=== PATIENT | male | born 1955 | race Two or more races ===

== ENCOUNTER 2022-08-12 14:36 | Emergency (ER) | payer MEDICARE, MEDICAID ==
[~2022-08-12] VITALS: Ht 180.3 cm; Wt 110.0 kg
[2022-08-12 15:37] LABS: Basophils # (auto) 0.2 10 ^3/uL (0-0.2); Eosinophils # (auto) 0.2 10 ^3/uL (0-0.8); Eosinophils % (auto) 1.8 % (0.0-7.0); Hematocrit 43.7 % (41.0-53.0); Hemoglobin 14.2 g/dL (13.5-17.5); Lymphocytes # (auto) 0.9 10 ^3/uL (0.4-5.4); Lymphocytes % (auto) 9.6 % (10.0-50.0); Mean Corpuscular Hemoglobin 27.9 pg (28.0-32.0); Mean Corpuscular Hgb Conc. 32.4 g/dL (32.0-36.0); Mean Corpuscular Volume 85.9 fL (80.0-100.0); Monocytes # (auto) 0.6 10 ^3/uL (0-1.3); Monocytes % (auto) 6.9 % (0.0-12.0); Neutrophils # (auto) 7.2 10 ^3/uL (1.6-8.6); Neutrophils % (auto) 79.7 % (37.0-80.0); Red Blood Cells 5.09 10^6/uL (4.5-5.90); Red Cell Distribution Width 14.4 % (11.8-14.3); White Blood Cell 9.1 10^3/uL (4.4-10.8)
[2022-08-12 15:50] LABS: Alanine Aminotransferase 25 U/L (16-61); Albumin 2.8 g/dL (3.4-5.0); Anion Gap 11 (5-15); Aspartate Aminotransferase 24 U/L (15-37); Blood Urea Nitrogen 19 mg/dL (7-18); Calcium 8.7 mg/dL (8.5-10.1); Carbon Dioxide 21 mmol/L (21-32); Chloride 107 mmol/L (98-107); GFR African American 132 mL/min; GFR Non-African American 109 mL/min; Glucose 131 mg/dL (74-106); Potassium 4.1 mmol/L (3.5-5.1); Sodium 139 mmol/L (136-145)
[2022-08-12 15:54] LABS: Alkaline Phosphatase 74 U/L (45-117); Bilirubin, Total 0.3 mg/dL (0.2-1.0); Total Protein 7.1 g/dL (6.4-8.2)
[2022-08-12] MEDS ORDERED: KETOROLAC TROMETH 30 MG/ML 1ML VIAL IV ONE (18:00)
[2022-08-12] MEDS ORDERED: FUROSEMIDE 40 MG/4 ML VIAL IV ONE (18:00)
[2022-08-12 21:20] VITALS: BP 144/76
[2022-08-12] MEDS ORDERED: MELO-335 PO (22:57)
[2022-08-12] MEDS ORDERED: FURO1TAB31 PO (22:57)
[2022-08-15 09:12] LABS: Hepatitis B Surface Antibody Negative (Negative)
[2022-08-15 09:48] LABS: Hepatitis A Total Antibody Negative (Negative)
[2022-08-15 12:36] LABS: Hepatitis C Antibody Negative (Negative)
== END 2022-08-12 23:24 | disposition home or self-care (01) ==
LOC: EDBD 14:36 → ER 14:36
DX: R60.0 Localized edema (principal); I10 Essential (primary) hypertension; R06.02 Shortness of breath
CPT/HCPCS: 36415; 80053; 83880; 85025; 86704; 86706; 86708; 86803; 87340; 93005; 93970; 96374; 96375; 99285; J1885; J1940

== ENCOUNTER 2023-04-17 18:26 | Inpatient (IN) | payer MEDICAID, MEDICARE ==
[~2023-04-17] VITALS: Ht 182.9 cm; Wt 110.0 kg
[~2023-04-17 18:26] MED LIST: FURO1TAB31 PO; MELO-335 PO
[2023-04-17 20:35] LABS: Basophils # (auto) 0.1 10 ^3/uL (0-0.2); Basophils % (auto) 0.7 % (0.0-2.0); Eosinophils # (auto) 0.4 10 ^3/uL (0-0.8); Eosinophils % (auto) 5.8 % (0.0-7.0); Hematocrit 43.1 % (41.0-53.0); Hemoglobin 14.1 g/dL (13.5-17.5); Lymphocytes # (auto) 1.5 10 ^3/uL (0.4-5.4); Lymphocytes % (auto) 20.1 % (10.0-50.0); Mean Corpuscular Hemoglobin 27.8 pg (28.0-32.0); Mean Corpuscular Hgb Conc. 32.8 g/dL (32.0-36.0); Mean Corpuscular Volume 84.7 fL (80.0-100.0); Monocytes # (auto) 0.6 10 ^3/uL (0-1.3); Monocytes % (auto) 8.2 % (0.0-12.0); Neutrophils % (auto) 65.2 % (37.0-80.0); Nucleated Red Blood Cells % 0.1 %; Red Blood Cells 5.08 10^6/uL (4.5-5.90); Red Cell Distribution Width 14.2 % (11.8-14.3); White Blood Cell 7.7 10^3/uL (4.4-10.8)
[2023-04-17 20:49] LABS: Alanine Aminotransferase 32 U/L (7-40); Albumin 4.3 g/dL (3.2-4.8); Alkaline Phosphatase 77 U/L (46-116); Anion Gap 7 (5-15); Aspartate Aminotransferase 24 U/L (13-40); Bilirubin, Total 0.4 mg/dL (0.2-1.0); Blood Urea Nitrogen 16 mg/dL (9-23); Calcium 9.4 mg/dL (8.7-10.4); Carbon Dioxide 25 mmol/L (20-30); Chloride 104 mmol/L (98-107); Glucose 104 mg/dL (74-106); Magnesium 1.8 mg/dL (1.6-2.6); Sodium 136 mmol/L (136-145); Total Protein 7.3 g/dL (5.7-8.2)
[2023-04-17 20:54] LABS: INR 1.04 (0.9-1.15); Partial Thromboplastin Time 31.3 SEC (24.5-34.5); Prothrombin Time 10.9 sec (9.3-11.8)
[2023-04-17] MEDS: FUROSEMIDE 100 MG/10ML VIAL IV ONE (23:21)
[2023-04-17] MEDS: VANCOMYCIN 1GM/200ML 200 ML IV ONE (23:24)
[2023-04-17] MEDS: IOHEXOL 350 MG/ML 100ML IJ ONE (23:27)
[2023-04-18] MEDS ORDERED: ACETAMINOPHEN 325 MG TAB PO PRN (00:15)
[2023-04-18 01:30] VITALS: PULSE 78; RESP 18; O2SAT 97
[2023-04-18] MEDS: ONDANSETRON HCL 4 MG/2 ML VIAL IV PRN (01:57)
[2023-04-18] MEDS: ONDANSETRON ODT 4 MG TAB PO ONE (01:58)
[2023-04-18] MEDS: HYDROmorphone HCL 2 MG/ML VL/or syr IV ONE (01:58)
[2023-04-18 02:36] LABS: Urine Bacteria NONE SEEN /hpf (None Seen); Urine Blood 1+ /uL (Negative); Urine Clarity Clear (Clear); Urine Color Colorless (Yellow); Urine Protein, UAD Negative (Negative); Urine Specific Gravity 1.012 (1.001-1.035); Urine Urobilinogen Normal (Negative); Urine WBC <1 /hpf (0 - 3)
[2023-04-18] MEDS: CLINDAMYCIN 600MG IV 50 ML IV SCH (05:57)
[2023-04-18] MEDS: cefTRIAXone 1GM/50ML D5W 50 ML IV SCH (09:26)
[2023-04-18] MEDS: ENOXAPARIN SOD 40 MG/0.4 ML SYRINGE SC SCH (10:32)
[2023-04-18] MEDS: FUROSEMIDE 40 MG TAB PO SCH (10:37)
[2023-04-18] MEDS: HYDROcodone-ACET 5/325MG TAB PO PRN (10:41)
[2023-04-18 16:30] LABS: Erythrocyte Sedimentation Rate 13 mm/hr (0-20)
[2023-04-18] MEDS: FUROSEMIDE 40 MG/4 ML VIAL IV SCH (18:16)
[2023-04-18 22:24] VITALS: PULSE 71; RESP 14; O2SAT 93
[2023-04-18 23:15] VITALS: BP 123/77; PULSE 106; RESP 20; TEMP 98.5; O2SAT 95
[2023-04-19] VITALS (7 sets, daily range): BP systolic 123–139; BP diastolic 72–91; PULSE 67–106; RESP 18–20; TEMP 97.8–98.9; O2SAT 95–96
[2023-04-19 05:48] LABS: Basophils # (auto) 0.1 10 ^3/uL (0-0.2); Basophils % (auto) 0.9 % (0.0-2.0); Eosinophils # (auto) 0.3 10 ^3/uL (0-0.8); Eosinophils % (auto) 5.5 % (0.0-7.0); Hematocrit 39.8 % (41.0-53.0); Lymphocytes # (auto) 1.6 10 ^3/uL (0.4-5.4); Lymphocytes % (auto) 27.2 % (10.0-50.0); Mean Corpuscular Hemoglobin 27.6 pg (28.0-32.0); Mean Corpuscular Hgb Conc. 32.7 g/dL (32.0-36.0); Mean Corpuscular Volume 84.2 fL (80.0-100.0); Monocytes # (auto) 0.7 10 ^3/uL (0-1.3); Monocytes % (auto) 11.8 % (0.0-12.0); Neutrophils # (auto) 3.3 10 ^3/uL (1.6-8.6); Neutrophils % (auto) 54.6 % (37.0-80.0); Nucleated Red Blood Cells % 0.1 %; Red Blood Cells 4.73 10^6/uL (4.5-5.90); Red Cell Distribution Width 14.1 % (11.8-14.3)
[2023-04-19 05:57] LABS: Anion Gap 8 (5-15); Carbon Dioxide 27 mmol/L (20-30); Chloride 106 mmol/L (98-107); Potassium 3.7 mmol/L (3.5-5.1); Sodium 141 mmol/L (136-145)
[2023-04-19 05:58] LABS: Calcium 8.8 mg/dL (8.7-10.4)
[2023-04-19 06:03] LABS: BUN/Creatinine Ratio 17.6 (10.0-20.0); Blood Urea Nitrogen 19 mg/dL (9-23); Glucose 84 mg/dL (74-106)
[2023-04-20 05:00] VITALS: BP 131/88; PULSE 105; RESP 18; TEMP 97.7; O2SAT 92
[2023-04-20 05:45] LABS: Basophils # (auto) 0 10 ^3/uL (0-0.2); Basophils % (auto) 0.8 % (0.0-2.0); Eosinophils # (auto) 0.3 10 ^3/uL (0-0.8); Eosinophils % (auto) 4.5 % (0.0-7.0); Hematocrit 42.6 % (41.0-53.0); Hemoglobin 13.9 g/dL (13.5-17.5); Lymphocytes # (auto) 1.4 10 ^3/uL (0.4-5.4); Lymphocytes % (auto) 22.2 % (10.0-50.0); Mean Corpuscular Hemoglobin 27.8 pg (28.0-32.0); Mean Corpuscular Hgb Conc. 32.7 g/dL (32.0-36.0); Mean Corpuscular Volume 85.3 fL (80.0-100.0); Monocytes # (auto) 0.7 10 ^3/uL (0-1.3); Monocytes % (auto) 12.3 % (0.0-12.0); Neutrophils # (auto) 3.7 10 ^3/uL (1.6-8.6); Neutrophils % (auto) 60.2 % (37.0-80.0); Red Cell Distribution Width 14.1 % (11.8-14.3); White Blood Cell 6.1 10^3/uL (4.4-10.8)
[2023-04-20 05:59] LABS: Chloride 104 mmol/L (98-107); Potassium 3.8 mmol/L (3.5-5.1); Sodium 140 mmol/L (136-145)
[2023-04-20 06:00] LABS: Anion Gap 7 (5-15); Calcium 9.5 mg/dL (8.7-10.4); Carbon Dioxide 29 mmol/L (20-30)
[2023-04-20 06:05] LABS: BUN/Creatinine Ratio 15.1 (10.0-20.0); Blood Urea Nitrogen 14 mg/dL (9-23); Glucose 90 mg/dL (74-106); Magnesium 2.1 mg/dL (1.6-2.6)
[2023-04-20 08:42] VITALS: BP 123/74; PULSE 64; RESP 20; TEMP 98; O2SAT 99
[2023-04-20 08:48] LABS: Hepatitis B Surface Antigen Negative (Negative)
[2023-04-20 09:09] LABS: Hepatitis C Antibody Negative (Negative)
[2023-04-20 12:45] VITALS: BP 144/90; PULSE 98; RESP 20; TEMP 98; O2SAT 98
[2023-04-20] MEDS: METOPROLOL SUCCINATE XL 50 MG TAB PO SCH (15:35)
[2023-04-20 17:10] VITALS: BP 138/77; PULSE 97; RESP 20; TEMP 98.4; O2SAT 93
[2023-04-20 21:00] VITALS: BP 149/85; PULSE 102; RESP 18; TEMP 98.6; O2SAT 97
[2023-04-21 01:00] VITALS: BP 126/81; PULSE 97; RESP 18; TEMP 98.3; O2SAT 100
[2023-04-21 05:00] VITALS: BP 137/89; PULSE 91; RESP 14; TEMP 98.2; O2SAT 92
[2023-04-21 09:00] VITALS: BP 117/82; PULSE 67; RESP 21; TEMP 97.5; O2SAT 98
[2023-04-21] MEDS: FUROSEMIDE 40 MG/4 ML VIAL IV SCH (09:12)
[2023-04-21] MEDS ORDERED: FURO1TAB33 PO (11:29)
[2023-04-21] MEDS ORDERED: CLIN300C70 PO (11:29)
[2023-04-21] MEDS ORDERED: METO25TA36 PO (11:29)
[2023-04-21 13:00] VITALS: BP 134/81; PULSE 64; RESP 17; TEMP 98.3; O2SAT 95
[2023-04-21 16:55] VITALS: BP 140/85; PULSE 91; RESP 20; TEMP 98.3; O2SAT 99
[2023-04-21 21:00] VITALS: BP 145/80; PULSE 97; RESP 19; TEMP 98.4; O2SAT 95
[2023-04-22] VITALS (8 sets, daily range): BP systolic 113–140; BP diastolic 49–79; PULSE 85–99; RESP 16–19; TEMP 96.7–98.6; O2SAT 93–98
[2023-04-22 20:19] LABS: Basophils # (auto) 0 10 ^3/uL (0-0.2); Basophils % (auto) 0.6 % (0.0-2.0); Eosinophils # (auto) 0.3 10 ^3/uL (0-0.8); Eosinophils % (auto) 3.9 % (0.0-7.0); Hematocrit 44.3 % (41.0-53.0); Hemoglobin 14.5 g/dL (13.5-17.5); Lymphocytes # (auto) 1.5 10 ^3/uL (0.4-5.4); Mean Corpuscular Hemoglobin 27.7 pg (28.0-32.0); Mean Corpuscular Hgb Conc. 32.8 g/dL (32.0-36.0); Mean Corpuscular Volume 84.3 fL (80.0-100.0); Monocytes # (auto) 0.6 10 ^3/uL (0-1.3); Monocytes % (auto) 8.6 % (0.0-12.0); Neutrophils # (auto) 4.3 10 ^3/uL (1.6-8.6); Neutrophils % (auto) 64.9 % (37.0-80.0); Red Blood Cells 5.26 10^6/uL (4.5-5.90); Red Cell Distribution Width 14.3 % (11.8-14.3); White Blood Cell 6.7 10^3/uL (4.4-10.8)
[2023-04-22 21:09] LABS: Erythrocyte Sedimentation Rate 19 mm/hr (0-20)
[2023-04-23] VITALS (8 sets, daily range): BP systolic 106–145; BP diastolic 58–76; PULSE 57–101; RESP 17–20; TEMP 97.5–98; O2SAT 93–98
[2023-04-24 01:00] VITALS: BP 119/85; PULSE 91; RESP 20; TEMP 97.7; O2SAT 94
[2023-04-24 05:32] VITALS: BP 135/80; PULSE 85; RESP 21; TEMP 98; O2SAT 97
[2023-04-24 08:00] VITALS: PULSE 61; RESP 20; O2SAT 96
[2023-04-24 08:15] VITALS: BP 121/73; PULSE 61; RESP 20; TEMP 97.6; O2SAT 96
[2023-04-24 12:15] VITALS: BP 116/68; PULSE 93; RESP 18; TEMP 97.8; O2SAT 97
[2023-04-24] MEDS ORDERED: CEL100T PO (12:56)
[2023-04-24] MEDS: CELECOXIB 100 MG CAP PO SCH (15:25)
[2023-04-24 15:32] VITALS: BP 116/68; PULSE 93; RESP 18; TEMP 97.8
== END 2023-04-24 17:43 | disposition home or self-care (01) | DRG 602 ==
LOC: ER 18:26 → OVERFLOW 04-18 00:15 → WEST WING 04-18 22:47
PROVIDERS: ADMIT Nurse Practitioner; ATTEND Nurse Practitioner Acute Care
DX: L03.116 Cellulitis of left lower limb (principal); I50.31 Acute diastolic (congestive) heart failure; Z59.00 Homelessness unspecified; I11.0 Hypertensive heart disease with heart failure; L97.513 Non-pressure chronic ulcer of other part of right foot with necrosis of muscle; L03.115 Cellulitis of right lower limb; I73.9 Peripheral vascular disease, unspecified; L97.523 Non-pressure chronic ulcer of other part of left foot with necrosis of muscle; E66.9 Obesity, unspecified; I25.10 Atherosclerotic heart disease of native coronary artery without angina pectoris; M25.561 Pain in right knee; Z68.32 Body mass index [BMI] 32.0-32.9, adult; Z79.899 Other long term (current) drug therapy
CPT/HCPCS: 36415; 71045; 71275; 73562; 73700; 80048; 80053; 81001; 83735; 83880; 84484; 84550; 85025; 85379; 85610; 85652; 85730; 86431; 86803; 87040; 87340; 93005; 93306; 93925; 93970; 99291; G0378; J2405; J3490